=== PATIENT | female | born 1965 | race Caucasian/White ===

== ENCOUNTER 2019-11-07 12:49 | Outpatient (CLI) | payer OTHER ==
--- NOTE | 2019-11-07 17:50 | MRI Report ---
PROCEDURE: Finger(s) LT W/O INDICATIONS: SWELLING MASS AND LUMP TECHNIQUE: Noncontrast oblique coronal T1 spin echo and T2 fast spin echo with fat saturation, axial and sagitta l T2 fast spin echo with fat saturation, through the thumb. COMPARISON: None. FINDINGS: Image quality: Excellent. Bones: The bones are normally aligned, without marrow contusions or fractures. No intra-osseous les ions. Metacarpophalangeal joint(s): The radial and ulnar collateral ligaments appear intact. The overlyin g aponeurosis of the adductor pollicis muscle also appears normal. The volar plate appears intact on sagittal images. Interphalangeal joint(s): The accessory and proper collateral ligaments appear intact. The volar pl ate demonstrates normal morphology. The extensor central slip appears intact on sagittal images. Tendons: The visualized flexor and extensor tendons appear intact and in expected positions. Soft tissues: Visualized muscles demonstrate normal bulk and internal signal. No intramuscular mass es identified. There is a 10 x 3 x 5 mm cystic area over dorsal aspect of first distal phalangeal bas e at the patient's reported area of palpable lump, and is superficial to the distal extensor tendon o f first digit. No adjacent bony erosion or periosteal reaction is seen. IMPRESSION: 1. Finding may represent a 10 x 3 x 5 mm ganglion cyst over dorsal aspect of first distal phalangeal base/first interphalangeal joint. No other soft tissue mass or fluid collection. 2. No marrow edema. No fracture or dislocation. No suspicious intraosseous lesion. Reviewed by: Ovidio Landis MD on 11/07/2019 5:49 PM PDT Approved by: Ovidio Landis MD on 11/07/2019 5:49 PM PDT Station ID: [id number]
== END 2019-11-07 12:50 | disposition home or self-care (01) ==
LOC: DI 12:49
PROVIDERS: ATTEND Orthopaedic Surgery
DX: R93.6 Abnormal findings on diagnostic imaging of limbs (principal)

== ENCOUNTER 2022-05-04 18:47 | Outpatient (CLI) | payer OTHER ==
--- NOTE | 2022-05-05 16:38 | Ultrasound Report ---
PROCEDURE: Carotid Doppler Complete INDICATIONS: TINNITUS BOTH EARS TECHNIQUE: Color and pulse Doppler interrogation was performed of both carotid systems, with image documentation and velocity measurements. COMPARISON: None. FINDINGS: Right side: Brachial blood pressure: 127/68 mm Hg. Common carotid artery peak systolic velocity: 80 cm/sec. Internal carotid artery peak systolic velocity: 85 cm/sec. Internal carotid artery end diastolic velocity: 32 cm/sec. External carotid artery peak systolic velocity: 70 cm/sec. ICA/CCA peak systolic ratio: 1.1 . Rosenberg scale imaging description: Moderate plaque at the bifurcation Percent internal carotid artery stenosis: Less than 50% . Vertebral artery: Flow direction is antegrade. Left side: Brachial blood pressure: 118/64 mm Hg. Common carotid artery peak systolic velocity: 77 cm/sec. Internal carotid artery peak systolic velocity: 88 cm/sec. Internal carotid artery end diastolic velocity: 39 cm/sec. External carotid artery peak systolic velocity: 54 cm/sec. ICA/CCA peak systolic ratio: 1.1 . Rosenberg scale imaging description: Moderate plaque at the bifurcation Percent internal carotid artery stenosis: Less than 50% . Vertebral artery: Flow direction is antegrade. IMPRESSION: Less than 50% stenosis of the internal carotid arteries bilaterally. The estimate of stenosis included in the report of the imaging study was calculated using the NASCET method Reviewed by: Viviana Gates MD on 05/05/2022 4:37 PM PST Approved by: Viviana Gates MD on 05/05/2022 4:37 PM PST Station ID: [id number]
== END 2022-05-04 18:48 | disposition home or self-care (01) ==
LOC: DI 18:47
PROVIDERS: ATTEND Otolaryngology Facial Plastic Surgery
DX: I65.23 Occlusion and stenosis of bilateral carotid arteries (principal)
CPT/HCPCS: 93880